=== PATIENT | female | born 1955 | race Caucasian/White ===

== ENCOUNTER → 2018-02-13 | Outpatient (CLI) | payer OTHER ==
[~2018-02-13] MED LIST: AMLODIPINE-BEN1 EACH PO; CRESTOR10 MG PO; FEOSOL325 MG PO; FUROSEMIDE20 MG PO; GLIPIZIDE XL10 MG PO; GLUCOPHAGE500 MG PO; GLUCOTROL XL10 MG PO; HYDROCHLOROTHIA25 MG PO; HYDROCODON-ACE1 EAC7 PO; JANUVIA100 MG PO; LASIX20 MG PO; LEVOTHYROXINE200 MC1 PO; LEVOXYL25 MCG PO; METFORMIN HCL500 MG PO; NORVASC10 MG PO; PERCOCET 5/31 TABLET PO; TRAMADOL HCL50 MG PO; ULTRAM50 MG PO; ZN-PLUS-PROTEIN15 MG PO; ZOLPIDEM TARTRA10 MG PO
== END | disposition home or self-care (01) ==
LOC: RAD 17:13
DX: M71.22 Synovial cyst of popliteal space [Baker], left knee (principal)
CPT/HCPCS: 93971